=== PATIENT | male | born 1995 | race Caucasian/White ===

== ENCOUNTER 2016-11-15 17:56 | Emergency (ER) | payer SELFPAY ==
[~2016-11-15] VITALS: Ht 172.7 cm; Wt 67.0 kg
[2016-11-15 18:04] VITALS: BP 133/91; PULSE 80; RESP 14
[2016-11-15] MEDS ORDERED: SODIUM CHLOR 0.9% 1000 ML INJ 1,000 ML IV ONE (18:18)
[2016-11-15] MEDS ORDERED: NALOXONE HCL 2 MG/2 ML VIAL IM ONE (18:30)
[2016-11-15] MEDS ORDERED: SODIUM CHLORIDE 0.9% FLUSH 10 ML FLUSH IVF PRN (18:30)
[2016-11-15 18:41] VITALS: O2SAT 98
--- NOTE | 2016-11-15 18:44 | RADRPT ---
EXAM DATE/TIME: 11/15/2016 18:20 [facility] COMPARISON: No previous studies available for comparison. INDICATIONS : Shortness of breath. MEDICAL HISTORY : None. SURGICAL HISTORY : None. ENCOUNTER: Initial ACUITY: 1 day PAIN SCORE: Non-responsive. LOCATION: Bilateral chest FINDINGS: A single view of the chest demonstrates the lungs to be symmetrically aerated without evidence of mas s, infiltrate or effusion. The cardiomediastinal contours are unremarkable. Osseous structures are intact. CONCLUSION: No evidence of acute cardiopulmonary disease. Paramjit Domingo MD on November 15, 2016 at 18:42 Board Certified Radiologist. This report was verified electronically.
--- NOTE | 2016-11-15 18:47 | PD ---
HPI Chief Complaint: OD/ Ingestion Time Seen by Provider: 18:18 Travel History International Travel<30 days: No Contact w/Intl Traveler<30days: No Traveled to known affect area: No History of Present Illness HPI This is a 21-year-old male who was brought in by [facility] after found unresponsive in a restaurant bathroom. The patient reportedly was found with a syringe in his hand unconscious. Paramedics gave him 2 doses of 0.4 mg of Narcan. After the second dose, he woke up. The patient is tearful states he's was thinking he was injecting heroin however the [place] police officer who was with the paramedics think it may have been this fentanyl that is going around. 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 He does report that he shares needles. He denies being an addict. He states he can quit any time he wants and doesn't get again "needle sick". He denies any other ingestion. He does report using tobacco. PFSH Past Medical History Medical History: Denies Significant Hx Past Surgical History Surgical History: No Previous Surgery Social History Alcohol Use: No Tobacco Use: Yes Substance Use: Yes Allergies-Medications (Allergen,Severity, Reaction): Coded Allergies: No Known Allergies (Unverified , 11/15/16) Reported Meds & Prescriptions Reported Meds & Active Scripts Active No Active Prescriptions or Reported Medications Review of Systems Except as stated in HPI: all other systems reviewed are Neg Eyes: No: Blurred Vision, Photophobia HENT: No: Headaches, Neck Pain Cardiovascular: No: Chest Pain or Discomfort, Palpitations Respiratory: No: Cough, Shortness of Breath Gastrointestinal: Positive: Nausea, No: Vomiting, Diarrhea, Abdominal Pain Musculoskeletal: No: Weakness, Pain Neurologic: No: Weakness, Headache Psychiatric: Positive: Substance Abuse, Other (reported acute life stressors.) , No: Depression Physical Exam Narrative GENERAL: Developed well-nourished gentleman who is tearful and reportedly remorseful. SKIN: Focused skin assessment warm/dry. Patient has track minor in his right before meals. There is no evidence of abscess or cellulitis noted. HEAD: Atraumatic. Normocephalic. EYES: Pupils equal and round at 4 mm. No scleral icterus. No injection or drainage. ENT: No nasal bleeding or discharge. Mucous membranes pink and moist. NECK: Trachea midline. Supple. CARDIOVASCULAR: Regular rate and rhythm. No murmur appreciated. RESPIRATORY: No accessory muscle use. Clear to auscultation. Breath sounds equal bilaterally. GASTROINTESTINAL: Abdomen soft, non-tender, nondistended. MUSCULOSKELETAL: No obvious deformities. No clubbing. No cyanosis. No edema. NEUROLOGICAL: Awake and alert. No obvious cranial nerve deficits. Motor grossly within normal limits. Normal speech. PSYCHIATRIC: Tearful and remorseful. Data Data Last Documented VS Vital Signs Date Time Temp Pulse Resp B/P Pulse Ox O2 Delivery O2 Flow Rate FiO2 11/15/16 18:04 80 14 133/91 Orders Electrocardiogram (11/15/16 18:18) Complete Blood Count With Diff (11/15/16 18:18) Comprehensive Metabolic Panel (11/15/16 18:18) Chest, Single Ap (11/15/16 18:18) Iv Access Insert/Monitor (11/15/16 18:18) Ecg Monitoring (11/15/16 18:18) Oximetry (11/15/16 18:18) Naloxone Inj (Narcan Inj) (11/15/16 18:30) Sodium Chloride 0.9% Flush (Ns Flush) (11/15/16 18:30) Sodium Chlor 0.9% 1000 Ml Inj (Ns 1000 M (11/15/16 18:18) Drug Screen, Random Urine (11/15/16 18:18) Alcohol (Ethanol) (11/15/16 18:18) MDM Medical Decision Making Medical Screen Exam Complete: Yes Emergency Medical Condition: Yes Differential Diagnosis Heroin overdose versus retinal overdose versus polysubstance overdose Narrative Course 21-year-old male found unresponsive in the bathroom of a restaurant. The patient was found with a needle in his arm. He states he thought he was injecting heroin however police are suspicious that this could be either fentanyl or carfentanyl. The patient was given a total of 0.8 mg of Narcan. He 's been given 2 mg of IM Narcan. He's been given I V fluids. Labs are pending at this time. He'll be signed out to Dr. Terrie Keyes, who will follow up on the labs and make appropriate disposition pending the results. Diagnosis Primary Impression: Opiate overdose Additional Impression: acute life stressors Scripts No Active Prescriptions or Reported Meds Bethel Raymond MD Nov 15, 2016 18:47
[2016-11-15 18:51] LABS: AUTOMATED NEUTROPHIL # 4.2 TH/MM3 (1.8-7.7); BASOPHIL % 0.5 % (0.0-2.0); EOSINOPHIL # 0.4 TH/MM3 (0-0.4); EOSINOPHIL % 4.7 % (0.0-4.0); HEMATOCRIT 45.9 % (39.0-51.0); HEMO FLAGS DIFF FINAL; LYMPH % 39.8 % (9.0-44.0); LYMPHOCYTE # 3.5 TH/MM3 (1.0-4.8); MEAN CELL VOLUME 87.5 FL (80.0-100.0); MEAN CORPUSCULAR HEMOGLOBIN 28.6 PG (27.0-34.0); MEAN CORPUSCULAR HGB CONC 32.6 % (32.0-36.0); MONO % 6.2 % (0.0-8.0); NEUT % 48.8 % (16.0-70.0); PLATELET COUNT 365 TH/MM3 (150-450); RED BLOOD COUNT 5.24 MIL/MM3 (4.50-5.90); RED CELL DISTRIBUTION WIDTH 14.5 % (11.6-17.2); WHITE BLOOD COUNT 8.7 TH/MM3 (4.0-11.0)
[2016-11-15 19:10] LABS: ALT (GPT) 47 U/L (12-78)
[2016-11-15 19:11] LABS: ALKALINE PHOSPHATASE 74 U/L (45-117); TOTAL BILIRUBIN ADULT 0.5 MG/DL (0.2-1.0)
[2016-11-15 19:13] LABS: ANION GAP 11 MEQ/L (5-15); AST (GOT) 46 U/L (15-37); BICARBONATE 25.2 MEQ/L (21.0-32.0); BLOOD UREA NITROGEN 24 MG/DL (7-18); CHLORIDE 98 MEQ/L (98-107); GLOMERULAR FILTRATION RATE 64 ML/MIN (>89); SODIUM (NA) 134 MEQ/L (136-145)
[2016-11-15 19:15] LABS: POTASSIUM 4.6 MEQ/L (3.5-5.1)
--- NOTE | 2016-11-15 19:22 | PD ---
Physical Exam Narrative General: The patient is a well-developed well-nourished male in no acute distress. The patient is sipping Gatorade on my arrival to the room. The patient has been ambulating throughout the room without difficulty. Head and Neck exam: Head is normocephalic atraumatic. Eyes: EOMI, pupils are equal round and reactive to light. Nose: Midline septum with pink mucous membranes Mouth: Dentition unremarkable. Moist mucus membranes. Posterior oropharynx is not erythematous. No tonsillar hypertrophy. Uvula midline. Airway patent. Neck: No palpable lymphadenopathy. No nuchal rigidity. No thyromegaly. Cardiovascular: Regular rate and rhythm without murmurs, gallops, or rubs. Lungs: Clear to auscultation bilaterally. No wheezes, rhonchi, or rales. Abdomen: Soft, without tenderness to palpation in all 4 quadrants of the abdomen. No guarding, rebound, or rigidity. Normal bowel sounds are audible. No tenderness on palpation of McBurney's point. Extremities: The patient has no clubbing, cyanosis, or edema. No calf tenderness on palpation. Back: No costovertebral angle tenderness to palpation. Neurologic Exam: Cranial nerves 2-12 were intact on exam. Strength is 5/5 in all 4 extremities. No sensory deficits noted. The patient is oriented to person, place, time, and situation. Skin Exam: No rash noted. Intact skin that is warm and dry. Data Data Last Documented VS Vital Signs Date Time Temp Pulse Resp B/P Pulse Ox O2 Delivery O2 Flow Rate FiO2 11/15/16 18:41 98 Room Air 11/15/16 18:04 80 14 133/91 Orders Electrocardiogram (11/15/16 18:18) Complete Blood Count With Diff (11/15/16 18:18) Comprehensive Metabolic Panel (11/15/16 18:18) Chest, Single Ap (11/15/16 18:18) Iv Access Insert/Monitor (11/15/16 18:18) Ecg Monitoring (11/15/16 18:18) Oximetry (11/15/16 18:18) Naloxone Inj (Narcan Inj) (11/15/16 18:30) Sodium Chloride 0.9% Flush (Ns Flush) (11/15/16 18:30) Sodium Chlor 0.9% 1000 Ml Inj (Ns 1000 M (11/15/16 18:18) Drug Screen, Random Urine (11/15/16 18:18) Alcohol (Ethanol) (11/15/16 18:18) Blood Glucose (11/15/16 20:51) Oral Rehydration (11/15/16 20:51) Labs Laboratory Tests Test 11/15/16 18:30 White Blood Count 8.7 TH/MM3 Red Blood Count 5.24 MIL/MM3 Hemoglobin 15.0 GM/DL Hematocrit 45.9 % Mean Corpuscular Volume 87.5 FL Mean Corpuscular Hemoglobin 28.6 PG Mean Corpuscular Hemoglobin 32.6 % Concent Red Cell Distribution Width 14.5 % Platelet Count 365 TH/MM3 Mean Platelet Volume 8.4 FL Neutrophils (%) (Auto) 48.8 % Lymphocytes (%) (Auto) 39.8 % Monocytes (%) (Auto) 6.2 % Eosinophils (%) (Auto) 4.7 % Basophils (%) (Auto) 0.5 % Neutrophils # (Auto) 4.2 TH/MM3 Lymphocytes # (Auto) 3.5 TH/MM3 Monocytes # (Auto) 0.5 TH/MM3 Eosinophils # (Auto) 0.4 TH/MM3 Basophils # (Auto) 0.0 TH/MM3 CBC Comment DIFF FINAL Differential Comment Sodium Level 134 MEQ/L Potassium Level 4.6 MEQ/L Chloride Level 98 MEQ/L Carbon Dioxide Level 25.2 MEQ/L Anion Gap 11 MEQ/L Blood Urea Nitrogen 24 MG/DL Creatinine 1.38 MG/DL Estimat Glomerular Filtration 64 ML/MIN Rate Random Glucose 257 MG/DL Calcium Level 9.1 MG/DL Total Bilirubin 0.5 MG/DL Aspartate Amino Transf 46 U/L (AST/SGOT) Alanine Aminotransferase 47 U/L (ALT/SGPT) Alkaline Phosphatase 74 U/L Total Protein 8.3 GM/DL Albumin 4.1 GM/DL Ethyl Alcohol Level LESS THAN 3 MG/DL [facility] Medical Record Reviewed: Yes Supervised Visit with ANA: No Interpretation(s) Last Impressions Chest X-Ray 11/15/161817 Signed Impressions: Service Date/Time: Tuesday, November 15, 2016 18:20 - CONCLUSION: No evidence of acute cardiopulmonary disease. Paramjit Domingo MD Narrative Course During the course of the patients emergency department visit, the patients history, examination, and differential diagnosis were reviewed with the patient. The patient had IV access obtained and blood work sent for analysis. The patient was on a satellite project site monitor with oximetry and blood pressure monitoring. The patient was initially seen and evaluated by Dr. Raymond. Please see his complete history and physical. The patient's case was checked out to me at the conclusion of his shift. The patient reportedly is a 21-year- old male who presents to [facility] emergency Department with a history of being found in a local bathroom with a needle sticking out of his arm. The patient reports that he does not normally use heroin, however he reports that he purchased some and used it for the first time. He denies any suicidal or homicidal ideations. The patient was initially provided normal saline 1 L IV fluid bolus, at 2030, the patient was given Narcan 2 mg IM 1. The patients laboratory studies were reviewed and remarkable for a white count of 8.7, hemoglobin 15, platelets 365 with 4.7 eosinophils, CMP is remarkable for sodium of 134, BUN 24, creatinine 1.38, glucose 257, AST 46, total protein 8.3, alcohol level is less than 3, chest x-ray shows no evidence of acute cardiopulmonary disease. The patient will be observed for any changes in his level of alertness, as well as any respiratory depression as the Narcan begins to wear off. If the patient continues to be awake and alert, the patient will be discharged home after a few hours of observation. The patient was repeatedly reexamined. The patient continued to be awake and alert. The patient at 21:15 was up walking around the room, cleaning his shoes in the sink. The patient is resting comfortably and feels better, is alert and in no distress. The patients results and examination findings were discussed with the patient. The repeat examination is unremarkable and benign. The history, exam, diagnostic testing, and current condition do not suggest any significant pathology to warrant further testing, continued ED treatment, admission, or surgical evaluation at this point. The vital signs have been stable. The patient does not have uncontrollable pain, intractable vomiting, or other significant symptoms. The patient's condition is stable and appropriate for discharge. The patient will pursue further outpatient evaluation with a primary care physician or other designated or consulting physician as indicated in the discharge instructions. The patient expressed understanding and was agreeable with this plan. Diagnosis Primary Impression: Opiate overdose Qualified Code: T40.601A - Opiate overdose, accidental or unintentional, initial encounter Additional Impression: acute life stressors Referrals: Primary Care Physician as needed Patient Instructions: General Instructions, Opioid Overdose (ED) Additional Instruction: Please avoid the use of illicit drugs. Med/Other Pt SpecificInfo: No Meds Exist/No RX given Scripts No Active Prescriptions or Reported Meds Disposition: 01 DISCHARGE HOME Condition: Stable Shara Keyes MD Nov 15, 2016 19:22
[2016-11-15 19:45] VITALS: BP 117/70; PULSE 75; RESP 18; O2SAT 99
[2016-11-15 22:12] VITALS: BP 115/70
--- NOTE | 2016-11-16 11:17 | EKG ---
Date Performed: 11/15/2016 Time Performed: 18:37:42 PTAGE: 21 years EKG: Sinus rhythm NORMAL ECG NO PREVIOUS TRACING DOCTOR: Boaz Keyes Interpretating Date/Time 11/16/2016 11:15:05
== END 2016-11-15 22:14 | disposition home or self-care (01) ==
LOC: NEPE 17:56
DX: T40.601A Poisoning by unspecified narcotics, accidental (unintentional), initial encounter (principal); X58.XXXA Exposure to other specified factors, initial encounter; F17.200 Nicotine dependence, unspecified, uncomplicated
CPT/HCPCS: 71010; 80053; 80307; 85025; 93005; 96372; 99285; J2310; J7030

== ENCOUNTER 2016-11-17 13:59 | Emergency (ER) | payer SELFPAY ==
[~2016-11-17] VITALS: Ht 172.7 cm; Wt 68.0 kg
[2016-11-17 14:08] VITALS: BP 136/70; PULSE 97; RESP 22; TEMP 98.4; O2SAT 100
[2016-11-17 14:12] VITALS: BP 136/70; PULSE 99; RESP 22; TEMP 98.4; O2SAT 100
[2016-11-17] MEDS ORDERED: BUPIVACAINE HCL PF 0.5% 10 ML VIAL INFIL ONE (14:30)
[2016-11-17] MEDS ORDERED: LIDOCAINE HCL 1% PF 30 ML VIAL INFIL ONE (14:30)
--- NOTE | 2016-11-17 14:35 | PD ---
HPI Chief Complaint: Injury Time Seen by Provider: 14:20 Travel History International Travel<30 days: No Contact w/Intl Traveler<30days: No Traveled to known affect area: No History of Present Illness HPI 21-year-old left-hand dominant male presents for evaluation of left fifth finger injury. He reports that prior to arrival he tripped in the sidewalk and fell, hitting his left fifth finger against the ground. He now has pain and deformity to the left fifth finger, constant, aching, worse with movement. He has no other complaints. PFSH Past Medical History Medical History: Denies Significant Hx Diminished Hearing: No Tetanus Vaccination: < 5 Years Influenza Vaccination: No Past Surgical History Surgical History: No Previous Surgery Social History Alcohol Use: No Tobacco Use: Yes (1/2 PPD) Substance Use: No Allergies-Medications (Allergen,Severity, Reaction): Coded Allergies: No Known Allergies (Unverified , 11/15/16) Reported Meds & Prescriptions Reported Meds & Active Scripts Active Ibuprofen 600 Mg Tab 600 Mg PO Q6H PRN Review of Systems Musculoskeletal: Positive: Limited ROM, Pain Skin: Positive Other (denies open wounds) Neurologic: No: Paresthesia Physical Exam Narrative GENERAL: Well-developed well-nourished male in no acute distress SKIN: Warm and dry. CARDIOVASCULAR: Regular rate and rhythm. No murmur appreciated. RESPIRATORY: No accessory muscle use. Clear to auscultation. Breath sounds equal bilaterally. MUSCULOSKELETAL: Boutonniere Deformity to the left fifth finger PIP joint. Limited range of motion. Tender to palpation. Capillary refill less than 2 seconds. NEUROLOGICAL: Awake and alert. No obvious cranial nerve deficits. Motor grossly within normal limits. Normal speech. Data Data Last Documented VS Vital Signs Date Time Temp Pulse Resp B/P Pulse Ox O2 Delivery O2 Flow Rate FiO2 11/17/16 14:12 98.4 99 22 136/70 100 Room Air Orders Finger ([id number]) (11/17/16 ) Bupivacaine Pf 0.5% Inj (Marcaine Pf 0.5 (11/17/16 14:30) Lidocaine Pf 1% Inj (Xylocaine-Mpf 1% In (11/17/16 14:30) Splint Or Brace Apply/Monitor (11/17/16 15:28) Mandatory Outpatient Referral (11/17/16 15:28) [facility] Medical Decision Making Medical Screen Exam Complete: Yes Emergency Medical Condition: Yes Medical Record Reviewed: Yes Interpretation(s) CONCLUSION: 1. Volar angulation of the left fifth middle phalanx in relation to the proximal phalanx suggesting tendinous or ligamentous injury if the patient is unable to straighten the finger. Clinical correlation is recommended. 2. No acute fracture or dislocation. Differential Diagnosis Finger dislocation, finger fracture, tendon injury Narrative Course 21-year-old male here with pain and deformity to the left fifth finger. He has no open wounds. He has a deformity to the left fifth PIP joint. Plan is for x- ray, digital block. He verbally consents. Digital block was performed for patient comfort. X-ray imaging reveals no fracture or dislocation. He does have a Boutonniere deformity to his finger suggesting extensor tendon rupture. He will be placed in a finger splint and a mandatory outpatient referral has been placed for outpatient follow-up with hand surgeon. I discussed the plan with the patient and he verbalizes understanding. He is stable for discharge, prescription for ibuprofen will be given. 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 A mandatory outpatient referral has been placed, our case reviewer should be contacting him at some point in the next week to help facilitate an appointment. Do not remove the splint. Ibuprofen for pain. Return for any emergent medical conditions. Med/Other Pt SpecificInfo: Prescription(s) given Scripts Ibuprofen 600 Mg [id number] Mg PO Q6H PRN (Pain/Inflammation) #40 TAB Ref 0 Prov:Jaz Aguilera MD 11/17/16 Disposition: 01 DISCHARGE HOME Condition: Stable John Hernandez Nov 17, 2016 14:35
--- NOTE | 2016-11-17 15:15 | RADRPT ---
EXAM DATE/TIME: 11/17/2016 14:49 [facility] COMPARISON: No previous studies available for comparison. INDICATIONS : Fell. Pain fifth digit of left hand, evaluate dislocation MEDICAL HISTORY : None. SURGICAL HISTORY : None. ENCOUNTER: Initial ACUITY: 1 day PAIN SCORE: 10/10 LOCATION: Left hand, 5th digit FINDINGS: There is volar angulation of the left fifth middle phalanx in relation to the proximal phalanx which suggests possible tendon or ligamentous injury if the patient is unable to straighten the finger. No definite acute fracture is identified. No significant dislocation is noted. CONCLUSION: 1. Volar angulation of the left fifth middle phalanx in relation to the proximal phalanx suggesting t endinous or ligamentous injury if the patient is unable to straighten the finger. Clinical correlatio n is recommended. 2. No acute fracture or dislocation. Ermias Mae MD on November 17, 2016 at 15:06 Board Certified Radiologist. This report was verified electronically.
[2016-11-17] MEDS ORDERED: IBUP-232 PO (15:29)
== END 2016-11-17 16:21 | disposition home or self-care (01) ==
LOC: NEPD 13:59
DX: M20.022 Boutonniere deformity of left finger(s) (principal); W01.0XXA Fall on same level from slipping, tripping and stumbling without subsequent striking against object, initial encounter; Y92.480 Sidewalk as the place of occurrence of the external cause
CPT/HCPCS: 29130; 64450; 73140